=== PATIENT | male | born 1945 | race Caucasian/White ===

== ENCOUNTER 2023-10-01 04:36 | Day surgery (SDC) | payer OTHER, BC ==
[2023-09-30 09:17] VITALS: BMI 19.5
[2023-10-01 11:04] VITALS: TEMP 98
[2023-10-01 11:43] VITALS: BP 117/52; PULSE 69; RESP 19
== END 2023-10-01 11:54 | disposition home or self-care (01) ==
LOC: JASU-ENDO 04:36
PROVIDERS: ATTEND Internal Medicine Gastroenterology
PROC: 0DBL8ZX Excision of Transverse Colon, Via Natural or Artificial Opening Endoscopic, Diagnostic (ICD-10-PCS; 2023-10-01)
PROC: 0DBH8ZX Excision of Cecum, Via Natural or Artificial Opening Endoscopic, Diagnostic (ICD-10-PCS; principal; 2023-10-01 10:15)
DX: Z12.11 Encounter for screening for malignant neoplasm of colon (principal); D12.0 Benign neoplasm of cecum; D12.3 Benign neoplasm of transverse colon; K64.8 Other hemorrhoids; K57.30 Diverticulosis of large intestine without perforation or abscess without bleeding; Z86.010 Personal history of colon polyps; Z80.0 Family history of malignant neoplasm of digestive organs
CPT/HCPCS: 88305-TC; 88341-TC; 88342-TC